=== PATIENT | female | born 1970 | race Caucasian/White ===

== ENCOUNTER 2019-01-13 19:48 | Inpatient (IN) | payer BC, MEDICARE ==
[~2019-01-13] VITALS: Ht 165.1 cm; Wt 67.8 kg
[2019-01-16 14:42] VITALS: BP 112/74
== END 2019-01-16 16:08 | disposition home or self-care (01) | DRG 312 ==
LOC: ED 22:56 → EDIP 23:37 → 5SO 23:43
PROVIDERS: ADMIT Internal Medicine; ATTEND Internal Medicine
DX: R55 Syncope and collapse (principal); E46 Unspecified protein-calorie malnutrition; G83.4 Cauda equina syndrome; E87.6 Hypokalemia; G47.00 Insomnia, unspecified; I48.91 Unspecified atrial fibrillation; G89.29 Other chronic pain; R56.9 Unspecified convulsions; Z86.61 Personal history of infections of the central nervous system; Z87.891 Personal history of nicotine dependence; Z90.49 Acquired absence of other specified parts of digestive tract; Z90.710 Acquired absence of both cervix and uterus; Z98.1 Arthrodesis status; Z88.6 Allergy status to analgesic agent; Z88.8 Allergy status to other drugs, medicaments and biological substances; Z68.24 Body mass index [BMI] 24.0-24.9, adult
CPT/HCPCS: 0399T; 36415; 70450; 71045; 80048; 81001; 82040; 83735; 84443; 84484; 85025; 85379; 93005; 93306; 96374; G0378; J1170; J1650; J7030